=== PATIENT | male | born 1980 | race Caucasian/White ===

== ENCOUNTER → 2018-11-22 11:20 | Outpatient (CLI) | payer OTHER, MEDICAID, SELFPAY ==
--- NOTE | 2018-11-22 | DI.CT.S_ITS ---
PROCEDURE: CT ABDOMEN WO/W CON INDICATIONS: LEFT TUBEROUS SCLEROSIS ANGIOMYELOPOMA TECHNIQUE: Optional 5 mm thick noncontrast images acquired from the diaphragm to the iliac crests. After the administration of intravenous contrast, 5 mm thick images again acquired from the diaphragm to the iliac crests in the arterial and urographic phases. 5 mm thick coronal and sagittal reformats were then acquired. For radiation dose reduction, the following was used: automated exposure control, adjustment of mA and/or kV according to patient size. COMPARISON: [facility], CT, ABDOMEN WITH CONTRAST, 02/13/2014, 9:34. [facility], CT, ABDOMEN WITH AND WITHOUT CONTR, 07/01/2008, 9:47. [facility], CT, ABDOMEN W&WO CONTRAST, 11/23/2016, 11:24. [facility], CT, CT KUB, 02/16/2017, 13:46. [facility], CT, ABDOMEN W&WO CONTRAST, 07/31/2017, 11:20. FINDINGS: Image quality: Excellent. Lung bases: Lung bases are clear. Heart size is normal. Genitourinary: As before, multiple hypervascular, macroscopic fat containing lesions are present within the bilateral kidneys consistent with angiomyolipomas in the setting of tuberous sclerosis. Embolization coils are present within the midpole the left kidney adjacent to the largest AML which measures approximately 5.2 x 7.2 cm in the axial plane. This is similar in size to the study dated 07/31/17. No new renal mass lesions. A probable hyperdense cyst within the lower pole of the left kidney is decreased in size from the prior study and now measures 2.2 cm in diameter (previously measured 3.6 cm in diameter). Other solid organs: Liver is normal in size and enhancement. As before, multiple subcentimeter fatty lesions are present within the liver unchanged from prior studies. Gallbladder is contracted. Biliary system is non dilated. Pancreas enhances normally. Spleen is normal in size and enhancement. No adrenal nodules. Peritoneum and bowel: Unenhanced bowel loops are normal in wall thickness and caliber. The appendix is thin walled and gas filled. No free fluid or air. Nodes and vessels: No retroperitoneal or mesenteric adenopathy by size criteria. Haziness of the mesenteric root without calcification suggests mesenteric sclerosis which is unchanged when compared with multiple prior studies. Aorta and inferior vena cava are normal in caliber. Bones: No suspicious bony lesions. No vertebral body compression fractures. Small bone islands are redemonstrated at L3, unchanged from prior studies. Miscellaneous: No ventral hernias. IMPRESSION: 1. Multiple angiomyolipomas of the bilateral kidneys overall similar in size to the study dated 07/31/17. No new renal tumors. 2. 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 3. 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 Dictated by: Mer Mejia M.D. on 11/22/2018 at 12:30 Approved by: Mer Mejia M.D. on 11/22/2018 at 13:08
== END ==
PROVIDERS: Family Provider Family Medicine; PCP Family Medicine; Visit Provider Urology
DX: D17.71 Benign lipomatous neoplasm of kidney (principal); D17.79 Benign lipomatous neoplasm of other sites
CPT/HCPCS: 74170; Q9967

== ENCOUNTER → 2019-05-09 08:48 | Outpatient (CLI) | payer MEDICARE, MEDICAID, SELFPAY ==
[2019-05-09 10:08] LABS: Blood Urea Nitrogen 15 mg/dL (9-20); Calcium 9.1 mg/dL (8.4-10.2); Carbon Dioxide 32 mmol/L (22-32); Chloride 101 mmol/L (98-107); Cholesterol 221 mg/dL (140-199); Estimated Glomerular Filt Rate > 60.0 mL/min (>60); Glucose 99 mg/dL (70-100); HDL Cholesterol 47 mg/dL (40-60); HEMOLYSIS < 15 (0-50); LDL Cholesterol Calculated 133 mg/dL (<100); Potassium 4.4 mmol/L (3.4-5.1); Sodium 140 mmol/L (137-145); Triglycerides 205 mg/dL (35-150)
[2019-05-09 10:25] LABS: Vitamin D 25 Hydroxy (D3) 40.9 ng/mL (30.0-100.0)
== END ==
PROVIDERS: PCP Student in an Organized Health Care Education/Training Program; Visit Provider Student in an Organized Health Care Education/Training Program
DX: Z87.442 Personal history of urinary calculi (principal); E55.9 Vitamin D deficiency, unspecified; Z13.220 Encounter for screening for lipoid disorders
CPT/HCPCS: 36415; 80048; 80061; 82306

== ENCOUNTER → 2020-06-02 11:58 | Outpatient (CLI) | payer MEDICARE, MEDICAID, SELFPAY ==
--- NOTE | 2020-06-02 | DI.US.S_ITS ---
PROCEDURE: US RENAL COMPLETE INDICATIONS: TUBEROUS SCLEROSIS TECHNIQUE: Real-time scanning was performed of the kidneys and bladder, with image documentation. COMPARISON: [facility], CT, CT ABDOMEN WO/W CON, 11/22/2018, 11:21. [facility], US, RENAL COMPLETE, 03/08/2018, 13:53. FINDINGS: Kidneys: kidneys are again suboptimally visualized secondary to tuberous sclerosis as was seen on prior imaging. Right kidney measures 12.4 cm long; left kidney measures 12.6 cm long. Right renal cortical thickness is 1.5 cm; left renal cortical thickness is 1.3 cm. Renal cortical echotexture is heterogeneous. No hydronephrosis or nephrolithiasis. Inferior pole of left solid renal mass redemonstrated which appears similar to prior examination measuring 3.5 x 3.3 x 4.4 cm. Superior pole renal cyst on the left measuring 1.8 x 1.6 x 1.5 cm. Bladder: Pre-void bladder volume is 632 mL. Post-void residual is 60 mL. Pre-void images demonstrate no intraluminal masses or stones. On pre-void images, right ureteral jets are noted with color Doppler interrogation. (Of note, ureteral jets may not be detectable in up to 25% of cases due to insufficient differences in specific gravity between ureteral and bladder urine). Miscellaneous: No free pelvic fluid. IMPRESSION: 1. Limited exam as was noted on prior studies again demonstrating a solid inferior pole left renal mass which appear similar and likely represents angiomyolipoma. Additional angiomyolipoma seen on CT scan not definitively seen by ultrasound. Consider repeat CT scan or MRI for more accurate assessment of the presumed angiomyolipomas. 2. Superior pole renal cyst measuring up to 1.8 cm. Dictated by: Nima DUVALL Interpreted: Gerard Merida MD on 06/02/2020 at 13:04 Approved by: Gerard Merida M.D. on 06/02/2020 at 13:57
== END ==
PROVIDERS: PCP Student in an Organized Health Care Education/Training Program; Referring Provider Urology; Visit Provider Urology
DX: Q85.1 Tuberous sclerosis (principal); N28.1 Cyst of kidney, acquired; N28.89 Other specified disorders of kidney and ureter
CPT/HCPCS: 76770

== ENCOUNTER → 2020-08-19 17:10 | Outpatient (CLI) | payer MEDICARE, MEDICAID, SELFPAY | PROVIDERS: PCP Student in an Organized Health Care Education/Training Program; Visit Provider Student in an Organized Health Care Education/Training Program | DX: L02.01 Cutaneous abscess of face (principal) | CPT/HCPCS: 87070; 87075; 87205 ==

== ENCOUNTER → 2021-07-27 10:55 | Outpatient (CLI) | payer MEDICARE, MEDICAID, SELFPAY ==
--- NOTE | 2021-07-27 | DI.CT.S_ITS ---
PROCEDURE: CT ABDOMEN PELVIS WO/W CON INDICATIONS: Benign lipomatous neoplasm of kidney TECHNIQUE: After the administration of oral contrast, 5 mm thick sections acquired from the diaphragms to the iliac crests. After the administration of intravenous contrast, 5 mm thick sections acquired from the diaphragms to the symphysis. 5 mm thick coronal and sagittal reformats were acquired. For radiation dose reduction, the following was used: automated exposure control, adjustment of mA and/or kV according to patient size. COMPARISON: [facility], CT, ABDOMEN W&WO CONTRAST, 07/31/2017, 11:20. [facility], CT, CT ABDOMEN WO/W CON, 11/22/2018, 11:21. FINDINGS: Image quality: Excellent. Lung bases: The right lung base demonstrates peripheral opacities with subpleural sparing. Heart size is normal. Solid organs: Liver: Multiple macroscopic fat containing lesions are seen within the liver, unchanged compared to prior studies. Biliary: The gallbladder has no gallstones, pericholecystic fluid, gallbladder wall thickening, or surrounding inflammatory change. Pancreas: The pancreas has no mass or ductal dilatation. There is no surrounding inflammation. Spleen: Normal size. There are no masses. Adrenals: No hypertrophy or nodules. Kidneys: A mass with macroscopic fat in the right middle pole medially is larger measuring 3.2 centimeters compared to 1.3 centimeters. A 2nd mass with macroscopic fat in the midpole posteriorly measures 3.1 centimeters compared to 2.5 centimeters in the prior study. A mass with macroscopic fat in the left upper pole laterally measures 6.9 x 3.6 centimeters compared to 5.1 x 2.6 centimeters. Innumerable additional smaller fat containing masses are also seen which are similar in size or also slightly larger. Embolization coils in the left kidney are seen. Peritoneum and bowel: The distal esophagus and stomach are normal. The small bowel has a normal caliber and appearance. The terminal ileum is normal. The large bowel has a normal caliber and appearance. The appendix is normal. No free fluid or air. Nodes and vessels: No retroperitoneal or mesenteric adenopathy by size criteria. Aorta and inferior vena cava are normal in size. Miscellaneous: No abdominal wall mass or hernia. PELVIS: Genitourinary: The bladder has no wall thickening or mass. No bladder calcifications. Miscellaneous: No inguinal hernias or adenopathy. Bones: Focal areas of sclerosis in the visualized spine, the largest in T11, L2, L3, and L5, are unchanged. IMPRESSION: 1. Multiple angiomyolipomas in both kidneys, many of which are significantly larger size compared to 11/22/2018, as above. Consistent with history of tuberous sclerosis. 2. The right lower lobe has peripheral opacities with subpleural sparing. This was not present on the prior x-ray on 11/22/2018. Differential diagnosis includes nonspecific interstitial pneumonia (a type of interstitial lung disease which has a long list of causes), pulmonary alveolar proteinosis, as well as various infectious causes including COVID-19. Consider referral to pulmonology. 3. Fat containing subcentimeter lesions in the liver consistent with history of tuberous sclerosis. Dictated by: Beau Li M.D. on 07/27/2021 at 16:40 Approved by: Beau Li M.D. on 07/29/2021 at 9:08
== END ==
PROVIDERS: PCP Student in an Organized Health Care Education/Training Program; Referring Provider Urology; Visit Provider Urology
DX: D17.71 Benign lipomatous neoplasm of kidney (principal); K76.9 Liver disease, unspecified
CPT/HCPCS: 74178

== ENCOUNTER → 2022-04-07 12:50 | Outpatient (CLI) | payer MEDICARE, MEDICAID, SELFPAY ==
--- NOTE | 2022-04-07 | DI.US.S_ITS ---
PROCEDURE: US RENAL COMPLETE INDICATIONS: RENAL ANGIOMYOLIPOMA TECHNIQUE: Real-time scanning was performed of the kidneys and bladder, with image documentation. COMPARISON: [facility], CT, CT ABDOMEN PELVIS WO/W CON, 07/27/2021, 11:10. [facility], US, US RENAL COMPLETE, 06/02/2020, 12:16. FINDINGS: Kidneys: Kidneys are normal in size. Right kidney measures 12.5 cm long; left kidney measures 12.4 cm long. Kidneys are heterogeneous with multiple cysts and hyperechoic lesions. There are at least 5 hyperechoic lesions in the right kidney. 1) 1.9 x 1.8 x 1 cm. 2) 1.6 x 1.5 x 1.3 cm. 3) 3.2 x 2.7 x 2.5 cm. 4) 3.6 x 3.5 x 3.2 cm. 5) 4 x 3.9 x 3 cm. There are at least 2 lesions in the left kidney. 1). 4 x 3.7 x 3.1 cm. (Previously 4.4 x 3.5 x 3.3 cm on ultrasound 06/02/2020). 2). Simple cyst 2.6 cm. (Previously 1.8 cm on ultrasound). Bladder: Prevoid volume 411 cc. Postvoid residual 53 cm. Miscellaneous: No free pelvic fluid. IMPRESSION: 1. Multiple renal lesions as measured above. These lesions are hyperechoic and most consistent with AMLs as seen on prior CT. Consider cross-sectional imaging for more accurate size comparison. 2. Postvoid residual 53 cc. Dictated by: Steve Colon M.D. on 04/07/2022 at 17:02 Approved by: Steve Colon M.D. on 04/07/2022 at 17:10
== END ==
PROVIDERS: PCP Student in an Organized Health Care Education/Training Program; Referring Provider Urology; Visit Provider Urology
DX: D17.71 Benign lipomatous neoplasm of kidney (principal); N28.1 Cyst of kidney, acquired
CPT/HCPCS: 76770

== ENCOUNTER → 2022-09-21 14:34 | Outpatient (CLI) | payer MEDICARE, MEDICAID, SELFPAY ==
--- NOTE | 2022-09-21 14:36 | DI.US.S_ITS ---
PROCEDURE: US SOFT TISSUE HEAD AND NECK INDICATIONS: Neoplasm of unspecified behavior of skin TECHNIQUE: Real-time scanning was performed of the neck region of interest, with image documentation. COMPARISON: None. FINDINGS: Targeted ultrasound of the left cheek palpable abnormality. There is a subcutaneous mass measuring 1.3 x 1 x 0.6 cm. Mass demonstrates internal vascularity. The mass is hypoechoic. IMPRESSION: Left cheek palpable abnormality corresponds to a subcutaneous hypoechoic mass measuring 1.3 cm. MRI of the soft tissue neck with IV contrast may be helpful for further evaluation. Ultrasound-guided biopsy could also be considered. Dictated by: Steve Colon M.D. on 09/21/2022 at 16:16 Approved by: Steve Colon M.D. on 09/21/2022 at 16:20
== END ==
PROVIDERS: PCP Student in an Organized Health Care Education/Training Program; Referring Provider Internal Medicine; Visit Provider Internal Medicine
DX: D49.2 Neoplasm of unspecified behavior of bone, soft tissue, and skin (principal)
CPT/HCPCS: 76536

== ENCOUNTER → 2022-10-05 11:43 | Outpatient (CLI) | payer MEDICARE, MEDICAID, SELFPAY ==
[2022-10-05 12:37] LABS: BUN Creatinine Ratio 10.7 (6-22); Blood Urea Nitrogen 13 mg/dL (9-20); Estimated Glomerular Filt Rate > 60 mL/min (>60)
== END ==
PROVIDERS: PCP Student in an Organized Health Care Education/Training Program; Referring Provider Urology; Visit Provider Urology
DX: D17.71 Benign lipomatous neoplasm of kidney (principal)
CPT/HCPCS: 36415; 82565; 84520

== ENCOUNTER → 2022-10-20 11:41 | Outpatient (CLI) | payer MEDICARE, MEDICAID, SELFPAY ==
--- NOTE | 2022-10-20 11:43 | DI.CT.S_ITS ---
PROCEDURE: CT ABDOMEN WO/W CON INDICATIONS: Benign lipomatous neoplasm of kidney TECHNIQUE: Optional 5 mm thick noncontrast images acquired from the diaphragm to the iliac crests. After the administration of intravenous contrast, 5 mm thick images again acquired from the diaphragm to the iliac crests in the arterial and urographic phases. 5 mm thick coronal and sagittal reformats were then acquired. For radiation dose reduction, the following was used: automated exposure control, adjustment of mA and/or kV according to patient size. COMPARISON: [facility], CT, CT ABDOMEN WO/W CON, 11/22/2018, 11:21. FINDINGS: Image quality: Excellent. Lung bases: Lung bases are clear. Heart size is normal. Genitourinary: As before, multiple macroscopic-fat containing exophytic lesions are redemonstrated bilaterally within the kidneys. Embolization coils are present within the right lower pole and right midpole mass lesions. A left midpole fatty mass and a left lower pole fatty mass now measure 3.4 x 3.4 cm and 3.2 x 2.6 cm, respectively. On the prior study these measured 2.5 x 2.3 and 2.2 x 1.9 cm, respectively. No hydronephrosis or nephrolithiasis. A subcentimeter hyperdense cyst is redemonstrated at the upper pole of the right kidney. Other solid organs: Liver is normal in size and enhancement. As before, multiple subcentimeter fat density lesions are noted throughout the liver, unchanged from the prior study. Gallbladder is unremarkable . Biliary system is non dilated. Pancreas enhances normally. Spleen is normal in size and enhancement. No adrenal nodules. Peritoneum and bowel: Unenhanced bowel loops are normal in wall thickness and caliber. No free fluid or air. Nodes and vessels: No retroperitoneal or mesenteric adenopathy by size criteria. Aorta and inferior vena cava are normal in caliber. Bones: No suspicious bony lesions. Sclerotic foci within the thoracolumbar spine are redemonstrated and likely represent small bone islands. No vertebral body compression fractures. Miscellaneous: No ventral hernias. IMPRESSION: 1. Multiple bilateral renal angiomyolipoma is redemonstrated. The left mid and lower pole lesions of increased in size when compared with the 2019 study. Other findings remain stable from the prior study. Dictated by: Mer Mejia M.D. on 10/20/2022 at 13:12 Approved by: Mer Mejia M.D. on 10/20/2022 at 13:18
== END ==
PROVIDERS: PCP Student in an Organized Health Care Education/Training Program; Referring Provider Urology; Visit Provider Urology
DX: D17.71 Benign lipomatous neoplasm of kidney (principal)
CPT/HCPCS: 74170; Q9967

== ENCOUNTER → 2022-12-18 12:55 | Outpatient (CLI) | payer MEDICARE, MEDICAID, SELFPAY ==
[2022-12-18 14:09] LABS: Influenza A - CEPHEID Flu A NEGATIVE (NEGATIVE); Influenza B - CEPHEID Flu B NEGATIVE (NEGATIVE); Respiratory Syncytial Virus Negative (Negative)
[2022-12-18 14:21] LABS: COVID-19 CEPHEID 4-PLEX PCR Negative (Negative)
== END ==
PROVIDERS: PCP Student in an Organized Health Care Education/Training Program; Visit Provider Student in an Organized Health Care Education/Training Program
DX: J02.9 Acute pharyngitis, unspecified (principal); Z20.828 Contact with and (suspected) exposure to other viral communicable diseases
CPT/HCPCS: 0241U; 87070

== ENCOUNTER → 2023-06-07 09:05 | Outpatient (CLI) | payer MEDICARE, MEDICAID, SELFPAY ==
[2023-06-07 11:22] LABS: Add Manual Diff / Slide Review NO; Basophils Absolute Auto 0 /uL (0-100); Basophils Percent Auto 0.3 % (0-2); Eosinophils Absolute Auto 300 /uL (0-450); Eosinophils Percent Auto 3.9 % (2-4); Hemoglobin 13.2 g/dL (13.5-17.5); Lymphocytes Absolute Auto 1000 /uL (1100-4500); Lymphocytes Percent Auto 15.3 % (25-40); Mean Corpuscular Hemoglobin 31.2 PG (26-34); Mean Corpuscular Volume 91.9 fL (80-100); Monocytes Absolute Auto 800 /uL (0-900); Monocytes Percent Auto 11.6 % (3-14); Neutrophils Absolute Auto 4600 /uL (1500-7000); Neutrophils Percent Auto 68.9 % (50-75); Platelet Count 150 X10^3/uL (150-400); Red Blood Cell Count 4.24 X10^6/uL (4.5-5.9); White Blood Cell Count 6.7 X10^3/uL (4.5-11.0)
[2023-06-07 11:42] LABS: Alanine Aminotransferase 27 IU/L (<50); Albumin 4.3 g/dL (3.5-5.0); Albumin Globulin Ratio 1.7 (1.0-2.8); Alkaline Phosphatase 64 U/L (38-126); Aspartate Aminotransferase 25 IU/L (17-59); BUN Creatinine Ratio 18.2 (6-22); Bilirubin Total 0.4 mg/dL (0.2-1.3); Blood Urea Nitrogen 22 mg/dL (9-20); Calcium 9.3 mg/dL (8.4-10.2); Carbon Dioxide 28 mmol/L (22-32); Chloride 105 mmol/L (98-107); Cholesterol 203 mg/dL (140-199); Estimated Glomerular Filt Rate > 60 mL/min (>60); Globulin 2.6 g/dL (1.7-4.1); Glucose 90 mg/dL (70-100); HDL Cholesterol 43 mg/dL (40-60); HEMOLYSIS < 15 (0-50); LDL Cholesterol Calculated 139 mg/dL (<100); Potassium 4.6 mmol/L (3.4-5.1); Sodium 138 mmol/L (137-145); Total Protein 6.9 g/dL (6.3-8.2); Triglycerides 107 mg/dL (35-150)
[2023-06-07 11:49] LABS: Appearance Urine UA CLEAR; Bilirubin Urine UA NEGATIVE (NEGATIVE); Color Urine UA YELLOW; Glucose Urine UA NEGATIVE (Negative); Ketones Urine UA NEGATIVE (NEGATIVE); Leukocyte Esterase Urine UA NEGATIVE (NEGATIVE); Nitrite Urine UA NEGATIVE (Negative); Occult Blood Urine UA NEGATIVE (Negative); Protein Urine UA NEGATIVE (Negative); Urobilinogen Urine UA 0.2 E.U./dL (0.2)
[2023-06-07 12:04] LABS: Bacteria Urine None Seen; Culture Indicated Urine Cult Not Indicated; RBC Urine 0-1/HPF (0-5/HPF); Squamous Epithelial Cell Urine 0-1 /HPF (0-5/HPF); WBC Urine 0-1/HPF (0-5/HPF)
[2023-06-07 12:28] LABS: TSH w/ Reflex to FT4 0.88 uIU/mL (0.47-4.68)
== END ==
PROVIDERS: PCP Pediatrics; Referring Provider Pediatrics; Visit Provider Pediatrics
DX: I49.5 Sick sinus syndrome (principal); G40.919 Epilepsy, unspecified, intractable, without status epilepticus; Q85.1 Tuberous sclerosis; Z95.0 Presence of cardiac pacemaker
CPT/HCPCS: 36415; 80053; 80061; 81001; 84443; 85025

== ENCOUNTER → 2023-10-05 11:58 | Outpatient (CLI) | payer MEDICARE, MEDICAID, SELFPAY ==
--- NOTE | 2023-10-05 | DI.CT.S_ITS ---
PROCEDURE: CT ABDOMEN RENAL PROTOCOL INDICATIONS: ANGIOMYOLIPOMA OF BOTH KIDNEYS TECHNIQUE: Optional 5 mm thick noncontrast images acquired from the diaphragm to the iliac crests. After the administration of intravenous contrast, 5 mm thick images again acquired from the diaphragm to the iliac crests in the arterial and urographic phases. 5 mm thick coronal and sagittal reformats were then acquired. For radiation dose reduction, the following was used: automated exposure control, adjustment of mA and/or kV according to patient size. COMPARISON: [facility], CT, CT ABDOMEN PELVIS WO/W CON, 07/27/2021, 11:10. [facility], CT, CT ABDOMEN WO/W CON, 10/20/2022, 12:16. FINDINGS: Image quality: Good Lower chest: Left lung base scarring. Partially seen cardiac electrode lead. Mildly patulous distal esophagus. Solid organs: Subcentimeter lesions are too small to characterize, some which exhibit fatty attenuation, likely hepatic AMLs. Some of these may represent cysts. Gallbladder is under distended. No pathologic dilation of the biliary system or pancreatic duct. No splenomegaly. Unchanged right lateral limb adrenal thickening versus tiny nodule. There are post treatment changes in the left interpolar and upper pole. There are numerous suspected cysts and fat containing lesions compatible with angiomyolipomas. Index lesion in the lower pole of the right kidney measures 4.7 x 3.1 cm, previously 4.6 x 3.3 cm in 202., however a lesion in the interpolar region of the right kidney (02/11) is larger than 2021, now measuring 4 cm, previously 2.8 cm in 202 and 3.5 cm in 202. Another large multi lobular lesion in the interpolar region of the left kidney measures about 5.2 x 5.3 cm, similar compared to 2022, slightly decreased compared to 202. Vessels and lymph nodes: No abdominal aortic aneurysm. No pathologic lymph nodes by size criteria. The main portal vein appears patent. Bowel and peritoneum: No evidence of small bowel obstruction. No pathologic ascites. Body wall: Unremarkable Bones: No acute or suspicious osseous finding. Unchanged small sclerotic bone lesions. IMPRESSION: Angiomyolipoma seen in the kidneys, and also suspected in the liver. Index lesions are described above. The posterior right interpolar region lesion, has slowly grown since at least 2020. See reference image 02/11. Others are grossly stable allowing for differences in imaging position. Of note, there is increased risk of spontaneous hemorrhage for angiomyolipoma is measuring 4 cm or greater. Dictated by: Willie Martini M.D. on 10/06/2023 at 13:09 Approved by: Willie Martini M.D. on 10/06/2023 at 13:19
== END ==
PROVIDERS: PCP Student in an Organized Health Care Education/Training Program; Referring Provider Physician Assistant Medical; Visit Provider Physician Assistant Medical
DX: D17.71 Benign lipomatous neoplasm of kidney (principal)
CPT/HCPCS: 74170; Q9967

== ENCOUNTER 2024-03-15 12:32 | Emergency (ER) | payer MEDICARE, MEDICAID, SELFPAY ==
[2024-03-15 12:35] VITALS: BP 135/83; PULSE 78; RESP 16; TEMP 36.5; O2SAT 98; BMI 34.9
--- NOTE | 2024-03-15 12:45 | ED_ITS ---
HPI - Fall <Tulio Acevedo PA-C - Last Filed: 03/15/24 13:08> General Chief Complaint: Fall Stated Complaint: FALL, R LEG INJURY Time Seen by Provider: 03/15/24 12:45 Source: patient Mode of arrival: Ambulatory History of Present Illness HPI Narrative: This is a 44-year-old male presents emergency department due to concerns for an abrasion to the right knee. Patient was mechanically fell 2 days ago landing on his right knee and has not abrasion. They were concerned that it may become infected. Denies any fevers or other systemic symptoms. No significant pain to the knee and they have a low concern for any kind of fracture. Related Data Home Medications Medication Instructions Recorded Confirmed levetiracetam 1,000 mg tablet 2,000 mg PO BID 10/16/19 12/27/23 citalopram 20 mg tablet 20 mg PO DAILY 07/23/20 12/27/23 pregabalin 150 mg capsule 150 mg PO BID 06/01/23 12/27/23 cholecalciferol (vitamin D3) 25 25 mcg PO DAILY 12/27/23 12/27/23 mcg (1,000 unit) capsule Previous Rx's Medication Instructions Recorded Disabled Parking Permit dev ##1 08/09/16 lamotrigine 100 mg tablet 100 mg PO BID #60 tabs 01/16/18 (Lamictal) loratadine 10 mg tablet (Claritin) 10 mg PO Q DAY #90 tabs 12/27/18 nystatin 100,000 unit/gram topical 1 applic topical TID #30 grams 12/27/23 powder citalopram 10 mg tablet 10 mg PO DAILY #30 tabs 01/18/24 Allergies Allergy/AdvReac Type Severity Reaction Status Date / Time Cephalosporins Allergy Unknown HIVES Verified 12/27/23 10:59 [CEPHALOSPORINS] dextromethorphan Allergy Unknown Verified 12/27/23 10:59 [From DIMETAPP COLD-CONGESTION] diphenhydramine Allergy Unknown Verified 12/27/23 10:59 [From DIMETAPP COLD-CONGESTION] guaifenesin Allergy Unknown Verified 12/27/23 10:59 [From DIMETAPP COLD-CONGESTION] Penicillins [PENICILLINS] Allergy Unknown UNKNOWN Verified 12/27/23 10:59 phenylephrine Allergy Unknown Verified 12/27/23 10:59 [From DIMETAPP COLD-CONGESTION] pseudoephedrine Allergy Unknown Verified 12/27/23 10:59 [From DIMETAPP COLD-CONGESTION] Review of Systems <Tulio Acevedo PA-C - Last Filed: 03/15/24 13:08> Review of Systems Narrative: GENERAL: Denies chills, fatigue, malaise, fever, sweats. HEENT: Denies sinus pain, ear pain, sore throat, difficulty swallowing, dizziness. RESPIRATORY: Denies dyspnea, cough, wheezing, hemoptysis, sputum. CARDIOVASCULAR: Denies chest pain, palpitations, orthopnea, edema, GASTROINTESTINAL: Denies nausea, vomiting, abdominal pain, diarrhea, constipation, melena. : Denies dysuria, frequency, incontinence, hematuria, urinary retention. MUSCULOSKELETAL: denies weakness, joint pain, or bony pain SKIN: Right knee abrasion NEUROLOGIC: Denies weakness, headache, numbness, change in speech, confusion, seizures, incoordination. PSYCHIATRIC: No concerning psychosocial issues. 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 HEAD: Atraumatic. Normocephalic. EYES: Pupils equal round and reactive. Extraocular motions intact. No scleral icterus. No injection or drainage. ENT: Nose without bleeding, purulent drainage. Throat without erythema, tonsillar hypertrophy or exudate. Airway patent. NECK: Trachea midline. Non tender EXTREMITIES: No edema or joint tenderness. NEURO: AOx3. SKIN: Superficial abrasion to the lateral aspect of the right knee. No bony tenderness to palpation no joint laxity. Very minimal area of erythema surrounding the wound. No purulent drainage. Initial Vital Signs Initial Vital Signs: Vital Signs Temperature 97.7 F 03/15/24 12:35 Pulse Rate 78 03/15/24 12:35 Respiratory Rate 16 03/15/24 12:35 Blood Pressure 135/83 03/15/24 12:35 Pulse Oximetry 98 03/15/24 12:35 Oxygen Delivery Method Room Air 03/15/24 12:35 <Bryson Gee DO - Last Filed: 03/15/24 13:29> Initial Vital Signs Initial Vital Signs: Vital Signs Temperature 97.7 F 03/15/24 12:35 Pulse Rate 78 03/15/24 12:35 Respiratory Rate 16 03/15/24 12:35 Blood Pressure 135/83 03/15/24 12:35 Pulse Oximetry 98 03/15/24 12:35 Oxygen Delivery Method Room Air 03/15/24 12:35 Course <Tulio Acevedo PA-C - Last Filed: 03/15/24 13:08> Vital Signs Vital signs: Vital Signs - 8 hr 03/15/24 12:35 Temperature 97.7 F Pulse Rate 78 Respiratory Rate 16 Blood Pressure 135/83 Pulse Oximetry 98 Oxygen Delivery Method Room Air <DO Ghulam Farmer Last Filed: 03/15/24 13:29> Vital Signs Vital signs: Vital Signs - 8 hr 03/15/24 12:35 Temperature 97.7 F Pulse Rate 78 Respiratory Rate 16 Blood Pressure 135/83 Pulse Oximetry 98 Oxygen Delivery Method Room Air MDM - Fall <Tuilo Acevedo PA-C - Last Filed: 03/15/24 13:08> MDM Narrative Medical decision making narrative: ED course: This is a 44-year-old male presenting to the emergency department due to an abrasion to the right knee. On exam there does not appear to be any significant cellulitic or purulent infection. Shared decision-making utilized and we will not prescribe antibiotics. Recommended routine wound care. There was no surrounding tenderness to palpation of the knee and shared decision- making utilized and no x-rays ordered. CC: Right knee wound Complicating co-morbidities: As below Data collected from: Previous notes Medical records reviewed: Patient was not been to this emergency department the past. The history of tuberous sclerosis, sick sinus syndrome, pacemaker, epilepsy. History of cranial surgery. Differential considered, but not limited to: Infected wound, fracture Exam documented above, pertinent findings include: No significant erythema or purulent drainage from the right knee wound Lab Test results independently reviewed as above. Pertinent findings: None obtained Imaging studies independently reviewed: None obtained Scores Used: None MIPS Elements: None Consultations: None Treatments: None Re-evaluations: None Discussion: Discussed plan with the patient was comfortable with the plan Diagnosis: Knee wound Disposition: see below, along with detailed discharge instructions that have been reviewed with patient as well as indications for ED re-evaluation and additional outpatient follow up Discharge Plan Departure Patient Disposition: Home Clinical Impression: Abrasion Activity Restrictions/Additional Instructions: Thank you for coming to the [facility] Emergency Department today. As we discussed the wound does not appear overtly infected and I not believe that we need to prescribe oral antibiotics at this time. You are welcome to buy an [id number] topical antibiotic ointment to apply to the wound. Please return to the emergency department if you develop any significant new or worsening knee pain, fevers, spreading redness for coming from the wound, or any other concerning signs or symptoms. I hope you feel better soon. Please follow up with your primary care provider within a week if your symptoms continue. If you do not have a primary care provider please contact the [facility] Re source line at [phone]. They will ask some questions about your medical history and help you get set up with a provider in the community. Prescriptions: No Action cholecalciferol (vitamin D3) 25 mcg (1,000 unit) capsule 25 mcg PO DAILY nystatin 100,000 unit/gram powder 1 applic topical TID Qty: 30 0RF Rx Instructions: Apply below scrotum three times daily for 1 week Disabled Parking Permit Qty: 1 0RF lamotrigine [Lamictal] 100 MG tablet 100 mg PO BID Qty: 60 6RF levetiracetam 1,000 mg tablet 2,000 mg PO BID Rx Instructions: See 10/15/19 Neurology consult citalopram 20 mg tablet 20 mg PO DAILY citalopram 10 mg tablet 10 mg PO DAILY Qty: 30 2RF pregabalin 150 mg capsule 150 mg PO BID loratadine [Claritin] 10 mg tablet 10 mg PO Q DAY Qty: 90 3RF Referrals: Ada Mckeon MD [Primary Care Provider] - Stand Alone Forms: Patient Portal/API ED Sign-out <Bryson Gee, - Last Filed: 03/15/24 13:29> Cosign ED Attending Cosignature Attestation: Dr Gee Co-Sign Statement: I was available for consultation during this patient's emergency department visit. This chart is signed by myself for administrative purposes only. I did not have direct contact with this patient during this visit. They were seen independently by the APC.
== END 2024-03-15 13:14 | disposition home or self-care (01) ==
PROVIDERS: Emergency Provider Physician Assistant Medical; PCP Family Medicine
DX: S80.211A Abrasion, right knee, initial encounter (principal); W18.30XA Fall on same level, unspecified, initial encounter
CPT/HCPCS: 99281; 99282

== ENCOUNTER → 2024-09-18 13:10 | Outpatient (CLI) | payer MEDICARE, MEDICAID, SELFPAY ==
--- NOTE | 2024-09-18 13:12 | DI.US.S_ITS ---
PROCEDURE: US RENAL COMPLETE INDICATIONS: TUBEROUS SCLEROSIS/RENAL ANGIOMYOLIPOMA TECHNIQUE: Real-time scanning was performed of the kidneys and bladder, with image documentation. COMPARISON: [facility], CT, CT ABDOMEN RENAL PROTOCOL, 10/05/2023, 12:23. [facility], US, US RENAL COMPLETE, 04/07/2022, 14:33. FINDINGS: Kidneys: Kidneys are mildly enlarged, measuring 12.7 centimeters on the right and 11.2 centimeters on the left. There is increased cortical echogenicity. Multiple solid and cystic masses are seen throughout the parenchyma, grossly similar to CT dated 10/05/2023. No hydronephrosis. A new solid renal mass is difficult to exclude. No hydronephrosis. Bladder: Pre-void bladder volume is 365 mL. Post-void residual is 30 mL. Pre-void images demonstrate no intraluminal masses or stones. On pre-void images, the right ureteral jets are noted with color Doppler interrogation. (Of note, ureteral jets may not be detectable in up to 25% of cases due to insufficient differences in specific gravity between ureteral and bladder urine). Miscellaneous: No free pelvic fluid. IMPRESSION: Diffusely heterogeneous kidneys with multiple renal masses, most likely representing angiomyolipomas. Renal cell carcinoma is difficult to exclude based on the heterogeneous appearance of the kidneys. Dictated by: Clemente Obrien M.D. on 09/18/2024 at 14:32 Approved by: Clemente Obrien M.D. on 09/18/2024 at 14:42
== END ==
LOC: US 13:11
PROVIDERS: PCP Family Medicine; Referring Provider Internal Medicine; Visit Provider Internal Medicine
DX: Q85.1 Tuberous sclerosis (principal); D17.71 Benign lipomatous neoplasm of kidney
CPT/HCPCS: 76770

== ENCOUNTER → 2025-09-18 07:39 | Outpatient (CLI) | payer MEDICARE, MEDICAID, SELFPAY ==
--- NOTE | 2025-09-18 07:40 | DI.US.S_ITS ---
PROCEDURE: US RENAL COMPLETE INDICATIONS: RENAL ANGIOMYLIPOMA TECHNIQUE: Real-time scanning was performed of the kidneys and bladder, with image documentation. Forty-eight images. COMPARISON: [facility], US, US RENAL COMPLETE, 09/18/2024, 13:33. Prior CT abdomen 10/05/2023 at 12:23 p.m.. FINDINGS: Kidneys: Diffuse heterogeneous increased echogenicity of both kidneys some of which related to previously reported numerous renal cysts and suspected renal angiomyolipomas, as well as medical renal disease. Postoperative changes of the left kidney partial nephrectomy with surgical clips and or embolization coils noted on prior CT. Right kidney measures approximately 15.6 cm long; left kidney measures approximately 16.3 cm long. Right renal cortical thickness is approximately 1.2 cm; left renal cortical thickness is approximately 2.0 cm. Approximately 2.5 cm heterogeneous mass mid right kidney and 2.2 cm inferior right kidney correspond to previous masses seen on CT although measurement is more difficult by ultrasound. Approximately 3.7 cm cystic mass left kidney is also noted. Bladder: Pre-void bladder volume is 286 mL. Post-void residual is 31 mL. Pre- void images demonstrate no intraluminal masses or stones. On pre-void images, bilateral ureteral jets are noted with color Doppler interrogation. Miscellaneous: No free pelvic fluid. IMPRESSION: Multiple bilateral heterogeneous renal masses may be related to renal angiomyolipoma or other masses which rarely may include renal cell carcinoma. CT with contrast may be useful for further evaluation. Increased renal cortical echogenicity as discussed above. No hydronephrosis Dictated by: Russel Mcgarry M.D. on 09/19/2025 at 12:32 Approved by: Russel Mcgarry M.D. on 09/19/2025 at 12:42
[2025-09-18 08:10] LABS: Hematocrit 40.0 % (41-53); Hemoglobin 13.6 g/dL (13.5-17.5); Mean Corpuscular HGB Conc 33.9 % (30-36); Mean Corpuscular Hemoglobin 28.4 PG (26-34); Mean Corpuscular Volume 83.7 fL (80-100); Platelet Count 207 X10^3/uL (150-400)
[2025-09-18 08:44] LABS: Iron 116 ug/dL (49-181)
[2025-09-18 08:47] LABS: Albumin 4.6 g/dL (3.5-5.0); Blood Urea Nitrogen 15 mg/dL (9-20); Calcium 9.0 mg/dL (8.4-10.2); Carbon Dioxide 26 mmol/L (22-32); Chloride 103 mmol/L (98-107); Estimated Glomerular Filt Rate > 60 mL/min (>60); Glucose 104 mg/dL (70-99); HEMOLYSIS < 15 (0-50); Phosphorous 2.7 mg/dL (2.5-4.5); Potassium 4.0 mmol/L (3.4-5.1); Sodium 137 mmol/L (137-145)
[2025-09-18 12:08] LABS: Appearance Urine UA CLEAR; Bilirubin Urine UA NEGATIVE (NEGATIVE); Color Urine UA YELLOW; Glucose Urine UA NEGATIVE (Negative); Ketones Urine UA NEGATIVE (NEGATIVE); Leukocyte Esterase Urine UA NEGATIVE (NEGATIVE); Nitrite Urine UA NEGATIVE (Negative); Occult Blood Urine UA TRACE-INTACT (Negative); Protein Urine UA NEGATIVE (Negative); Specific Gravity Urine UA 1.010 (1.000-1.035); Urobilinogen Urine UA 0.2 E.U./dL (0.2); pH Urine UA 5.5 (4.5-8.0)
[2025-09-18 14:01] LABS: HEMOLYSIS < 15 (0-50); Percent Iron Saturation 38 % (20-50); Total Iron Binding Capacity 307 ug/dL (261-462); Transferrin 270 mg/dL (206-381)
== END ==
LOC: US 07:40
PROVIDERS: PCP Family Medicine; Referring Provider Family Medicine; Visit Provider Internal Medicine
DX: D17.71 Benign lipomatous neoplasm of kidney (principal)
CPT/HCPCS: 36415; 76770; 80069; 81001; 83540; 83550; 85027